=== PATIENT | female | born 1995 | race Caucasian/White ===

== ENCOUNTER 2016-07-01 23:02 | Emergency (ER) | payer BC ==
[~2016-07-01] VITALS: Ht 170.2 cm; Wt 99.8 kg
[2016-07-01 23:04] VITALS: BP 147/83
[2016-07-01] MEDS ORDERED: ALPR1TAB2 PO (23:19)
[2016-07-01] MEDS ORDERED: LAMO25TA5 PO (23:19)
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
== END 2016-07-02 00:23 | disposition home or self-care (01) ==
LOC: ER 23:02
DX: S20.219A Contusion of unspecified front wall of thorax, initial encounter (principal); S40.022A Contusion of left upper arm, initial encounter; S40.021A Contusion of right upper arm, initial encounter; N93.9 Abnormal uterine and vaginal bleeding, unspecified; T74.21XA Adult sexual abuse, confirmed, initial encounter
CPT/HCPCS: 71020; 99284